=== PATIENT | female | born 1960 | race Two or more races ===

== ENCOUNTER 2024-01-28 06:04 | Day surgery (SDC) | payer BC, SELFPAY ==
[2024-01-28] VITALS (11 sets, daily range): BP systolic 130–154; BP diastolic 72–89; BMI 19.8
[2024-01-28] MEDS: TYLENOL 1000 MG PO (07:32)
[2024-01-28] MEDS: NORMOSOL-R 1000 IV (07:33)
[2024-01-28 07:51] LABS: Hematocrit 42.4 % (37.0-47.0); Hemoglobin 14.4 g/dL (12.0-16.0); Mean Corpuscular Hgb 28.5 pg (27.0-31.0); Mean Corpuscular Volume 83.8 fL (81.0-99.0); Mean Platelet Volume 10.1 fL (7.4-10.4); Platelet Count 275 10^3/uL (130-400); Red Blood Cell Count 5.06 10^6/uL (4.20-5.40); Red Cell Dist. Width 13.2 % (11.5-14.5); White Blood Cell Count 6.5 10^3/uL (4.8-10.8)
--- NOTE | 2024-01-28 23:05 | OR.RPT ---
Operative Report
Operative Report
Orthopedic Surgery Operative Report
Date of Surgery: 01/28/24
PREOPERATIVE DIAGNOSES:
1. Left trimalleolar ankle fracture
POSTOPERATIVE DIAGNOSES:
1. Left trimalleolar ankle fracture
PROCEDURE PERFORMED:
1. Open reduction and internal fixation of left trimalleolar ankle fracture (medial and lateral malleolus) with percutaneous pinning of talus
SURGEON: Christian Antoine D.O.
SYSTEMS COORDINATOR: None
ANESTHESIA: General
COMPLICATIONS: None
ESTIMATED BLOOD LOSS: 75 cc
DRAINS: None
SPECIMEN: None
IMPLANTS:
All [employer]-
9 hole one third tubular plate
2.7x20mm lag screw
3.5x12mm non-locking locking screw x 3
3.5x14mm locking screw x 3
4.0x48mm partially threaded cannulated screw x 1
4.0x50mm partially threaded cannulated screw x 1
2.0mm k-wire x 2
INDICATION FOR SURGERY: Patient recently took a fall while hiking and sustained a left trimalleolar ankle fracture. All operative and nonoperative treatment options were discussed with the patient and a decision was made to proceed with surgery. The
risks, benefits, alternatives, and indications were discussed with the patient in detail. The risks include, but are not limited to bleeding requiring transfusion, infection, need for reoperation, nerve or blood vessel damage, anesthetic risks, need
for further surgery, continued pain, blood clots in the legs, heart attack, stroke, , nerve root injury, malunion, nonunion. The patient understands the risks and elected to proceed. Informed consent was obtained preoperatively.
PROCEDURE IN DETAIL: The patient was identified in the preoperative holding area. The surgical site was appropriately marked. The patient was then brought to the operating room. General anesthesia was achieved. The patient was given routine
preoperative intravenous antibiotics. The patient was prepped and draped in the usual sterile manner. A preoperative surgical time-out was taken and the procedure was initiated.
Attention was first turned to the fibula. A linear incision was made over the lateral fibula. The subcutaneous soft tissues were bluntly dissected so as to not injure the superficial peroneal nerve. The soft tissues were then further dissected to
expose the fibula. The fracture site was exposed. The fracture site was then extensively debrided and irrigated to ensure that all interposed soft tissue and hematoma was removed. The fracture was then reduced using clamps and k-wires. Reduction
was checked. A lag screw was then placed across the proximal fracture site to maintain the reduction. The fracture site distally could not be lagged due to posterior comminution. Reduction was again confirmed on fluoroscopy. A one third tubular
plate of appropriate size was then chosen and applied to the fibula. The plate was held provisionally using K wires. The position of the plate was confirmed on fluoroscopy. The plate was then secured and reduced to the bone using cortical screws.
Once the plate was secured to the bone, the distal non-locking screws were replaced with locking screws. Once this was completed, all k-wires were removed and appropriate position of the hardware was confirmed on fluoroscopy. Attention was then
turned to the medial malleolus. An incision was made along the anterior colliculus of the medial malleolus. Soft tissues were dissected bluntly to reveal the fracture site. The fracture site was then copiously irrigated and debrided to ensure all
interposed soft tissue and hematoma was cleared. The fracture was then reduced under direct visualization. Reduction was confirmed on fluoroscopy. K-wires were placed across the fracture site and their position was checked on fluoroscopy. Two
cannulated screws were then placed across the fracture site under fluoroscopic guidance. The k-wires were removed. An external rotation stress test was performed to assess the syndesmosis under fluoroscopy. The tibio-fibular syndesmosis was not
found to widen with application of external rotation stress. However, there still appeared to be medial clear space widening. The ankle was manipulated to reduce this widening and the reduction was held in place using tibio-talar k-wires placed
percutaneously. Final x-rays were obtained. The wound sites were then copiously irrigated with saline. Hemostasis was achieved. The wounds were closed with Vicryl suture. Abe were applied to the skin. The percutaneous pins were cut and pin
caps were applied. Sterile compressive dressing was applied followed by application of a well-padded short leg splint. Patient tolerated the procedure well with no immediate complications.
Christian Antoine D.O.
Orthopedic Surgery
== END 2024-01-28 14:15 | disposition home or self-care (01) ==
LOC: SDS 06:04
PROVIDERS: ATTENDING PHYSICIAN Orthopaedic Surgery
DX: S82.852A Displaced trimalleolar fracture of left lower leg, initial encounter for closed fracture (principal); W19.XXXA Unspecified fall, initial encounter
CPT/HCPCS: 27822; 73610; 76000; 85027; 93005; C1713; C1763; C1769

== ENCOUNTER → 2024-04-22 13:30 | Outpatient (REF) | payer BC, SELFPAY | LOC: WDC 13:30 | PROVIDERS: ATTENDING PHYSICIAN Obstetrics & Gynecology; FAMILY PHYSICIAN Internal Medicine | DX: Z12.31 Encounter for screening mammogram for malignant neoplasm of breast (principal) | CPT/HCPCS: 77063; 77067 ==

== ENCOUNTER → 2024-08-24 09:54 | Outpatient (REF) | payer BC, SELFPAY | LOC: WDC 09:54 | PROVIDERS: ATTENDING PHYSICIAN Obstetrics & Gynecology; FAMILY PHYSICIAN Internal Medicine | DX: R92.30 Dense breasts, unspecified (principal) | CPT/HCPCS: 76641 ==